=== PATIENT | male | born 1960 | race Caucasian/White ===

== ENCOUNTER 2016-11-17 17:31 | Outpatient (CLI) | payer BC ==
[2016-11-17 18:15] LABS: BASOPHILS % (AUTO) 0.3 %; EOSINOPHILS # (AUTO) 0.1 10^3/uL (0.0-0.7); EOSINOPHILS % (AUTO) 0.6 %; HCT - HEMATOCRIT 46.4 % (42.0-52.0); HGB - HEMOGLOBIN 15.9 g/dL (14.0-18.0); LYMPHOCYTES # (AUTO) 1.5 10^3/uL (1.5-3.5); LYMPHOCYTES % (AUTO) 15.3 %; MEAN CORPUSCULAR HEMOGLOBIN 31.2 pg (27.0-31.0); MEAN CORPUSCULAR HGB CONC 34.3 g/dL (32.0-36.0); MEAN CORPUSCULAR VOLUME 90.9 fL (80.0-94.0); MEAN PLATELET VOLUME 8.2 fL (7.4-11.4); MONOCYTES # (AUTO) 0.7 10^3/uL (0.0-1.0); MONOCYTES % (AUTO) 7.6 %; NEUTROPHILS # (AUTO) 7.2 10^3/uL (1.5-6.6); NEUTROPHILS % (AUTO) 76.2 %; RED CELL DISTRIBUTION WIDTH 12.9 % (12.0-15.0); UNCORRECTED WHITE BLOOD COUNT 9.5 x10^3/uL; WHITE BLOOD COUNT 9.5 x10^3/uL (4.8-10.8)
[2016-11-17 18:33] LABS: ALBUMIN/GLOBULIN RATIO 1.4 (1.0-2.2); BILIRUBIN,TOTAL 0.9 mg/dL (0.2-1.0); CREATININE 0.8 mg/dL (0.6-1.2); POTASSIUM 4.2 mmol/L (3.5-5.0); TOTAL PROTEIN 7.4 g/dL (6.7-8.2)
[2016-11-17] MEDS ORDERED: IOPAMIDOL-300 100 ML VIAL IVP ONE (19:03)
--- NOTE | 2016-11-17 20:23 | CT Preliminary Report ---
Exam: CT Abdomen/Pelvis W/ IMPRESSION: Short segment abnormal distal descending colon consistent with diverticulitis. Please not e that the full differential would also include colitis, pseudomembranous colitis, ischemia, inflamma tory bowel disease as well as nonobstructing malignancy. [facility] The call report notification system was initiated by Dr. Dafne Dunbar at 20:15 hrs on 11/17/16. The above findings were discussed with Dr Luna by Dr. Dafne Dunbar at 20:22 hrs on 11/17/16. SITE ID: [id number]
--- NOTE | 2016-11-17 20:53 | CT Report ---
EXAM: CT ABDOMEN AND PELVIS EXAM DATE: 11/17/2016 06:53 p.m. CLINICAL HISTORY: Left lower quadrant pain, history of diverticulitis. COMPARISONS: None. TECHNIQUE: Routine helical CT imaging was performed through the abdomen and pelvis. IV contrast: 100 mL Isovue-300. Enteric contrast: No. Reconstructions: Coronal and sagittal. In accordance with CT protocol optimization, one or more of the following dose reduction techniques w ere utilized for this exam: automated exposure control, adjustment of mA and/or KV based on patient s ize, or use of iterative reconstructive technique. FINDINGS: Lung Bases: Unremarkable. Liver: Normal. No masses. Gallbladder/Bile Ducts: Unremarkable. Spleen: Normal. Pancreas: Normal. Adrenal Glands: Normal. Kidneys: Normal. No masses or hydronephrosis. Peritoneal Cavity/Bowel: Diverticula off the colon. Moderate amount of edema and wall thickening over the distal 4 cm of the descending colon without extraluminal air nor abscess. Large and small bowel of normal caliber. No adenopathy. No free fluid nor air. The appendix is well visualized and normal. Pelvic Organs: Normal. The bladder and visualized pelvic organs are within normal limits. Vasculature: No aneurysms or other significant abnormality. Bones: No significant abnormality. Other: None. IMPRESSION: Short segment abnormal distal descending colon consistent with diverticulitis. Please note that the f ull differential would also include colitis, pseudomembranous colitis, ischemia, inflammatory bowel d isease as well as nonobstructing malignancy. [facility] The call report notification system was initiated by Dr. Dafne Dunbar at 20:15 hrs on 11/17/16. The above findings were discussed with Dr Luna by Dr. Dafne Dunbar at 20:22 hrs on 11/17/16. Referring Provider Line: [phone] SITE ID: [id number]
== END 2016-11-17 17:32 | disposition home or self-care (01) ==
LOC: DI 17:31
PROVIDERS: ATTEND Physician Assistant
DX: R93.5 Abnormal findings on diagnostic imaging of other abdominal regions, including retroperitoneum (principal); R10.32 Left lower quadrant pain
CPT/HCPCS: 36415; 74177; 80053; 85025; Q9967

== ENCOUNTER 2016-11-25 18:46 | Emergency (ER) | payer BC ==
[2016-11-25] MEDS ORDERED: cefTRIAXone 1 GM VIAL IM STA (20:20)
--- NOTE | 2016-11-25 20:23 | ED Physician Documentation ---
PD HPI UPPER EXT INJURY - Stated complaint Stated Complaint: RED STREAK RT ARM - Chief complaint Chief Complaint: Ext Problem - History obtained from History obtained from: Patient - History of Present Illness Location: Right Type of injury: Other (He had a CAT scan about a week ago for diverticulitis, and IV was in the right arm. He was not really having any trouble with it and the diverticulitis is improving, however he had a little pimple or scab in the antecubital fossa which he picked off today and now has a red streak up the right bicep without fevers or chills.) Review of Systems Constitutional: denies: Fever, Chills Nose: denies: Rhinorrhea / runny nose, Congestion GI: denies: Abdominal Pain, Nausea, Vomiting : denies: Dysuria PD PAST MEDICAL HISTORY - Past Medical History Past Medical History: Yes GI: GERD Other Past Medical History: diverticulitis, basal cell carcinma - Past Surgical History Past Surgical History: Yes General: Hiatal hernia repair, Other - Present Medications Home Medications: Ambulatory Orders Medication Instructions Recorded Confirmed Amox/Clav 875/125 [Augmentin 875 mg PO DAILY 11/25/16 11/25/16 875/125] Cephalexin [Keflex] 500 mg PO QID #28 capsule 11/25/16 Metronidazole [Flagyl] 500 mg PO DAILY 11/25/16 11/25/16 - Allergies Allergies/Adverse Reactions: Allergies Allergy/AdvReac Type Severity Reaction Status Date / Time levofloxacin [From Levaquin] Allergy Unknown Verified 11/25/16 18:55 - Social History Does the pt smoke?: No Smoking Status: Never smoker Does the pt drink ETOH?: Yes Does the pt have substance abuse?: No - Immunizations Immunizations are current?: Yes PD ED PE NORMAL - Vitals Vital signs reviewed: Yes - General General: Alert and oriented X 3, No acute distress - Abdomen Abdomen: Soft, Non tender - Derm Derm: Other (He has a red streak over the brachial vein over the right bicep. No limited ROM, no purulence) - Neuro Neuro: Alert and oriented X 3, Normal speech - Psych Psych: Normal mood, Normal affect Results - Vitals Vitals: Vital Signs - 24 hr 11/25/16 11/25/16 18:53 19:57 Temperature 36.2 C L Heart Rate 77 56 L Respiratory 20 16 Rate Blood Pressure 130/75 117/79 O2 Saturation 97 99 Oxygen O2 Source Room air PD MEDICAL DECISION MAKING - ED course ED course: 56-year-old gentleman presents with what looks like lymphangitis of the right upper extremity, less likely would be phlebitis, he did receive IV contrast in that arm, but a week between the injection and the symptoms seems out of place for phlebitis. Antibiotic choice and treatment is somewhat limited by the fact that he is already on Augmentin and Flagyl for his diverticulitis, he received IM Rocephin here and we will change his Augmentin to Keflex. Departure - Departure Disposition: 01 Home, Self Care Clinical Impression: Acute lymphangitis Condition: Good Record reviewed to determine appropriate education?: Yes Instructions: ED Lymphangitis Prescriptions: Cephalexin [Keflex] 500 mg PO QID #28 capsule Comments: Return if worse, if not improving in a few days, or if he develop a fever or chills.
[2016-11-25] MEDS ORDERED: LIDOCAINE 1% 2 ML VIAL ONE (20:37)
[2016-11-25] MEDS ORDERED: cefTRIAXone 1 GM VIAL ONE (20:37)
[2016-11-25 21:01] VITALS: BP 132/81
== END 2016-11-25 21:01 | disposition home or self-care (01) ==
LOC: ED 18:46
DX: L03.123 Acute lymphangitis of right upper limb (principal); Z85.89 Personal history of malignant neoplasm of other organs and systems
CPT/HCPCS: 96372; 99283

== ENCOUNTER 2017-09-01 13:32 | Outpatient (CLI) | payer BC ==
--- NOTE | 2017-09-01 17:26 | XRAY Report ---
Procedure Date: 09/01/2017 Accession Number: [id number] / [id number] Procedure: XRS - Lumbar Spine 2 View CPT Code: FULL RESULT: EXAM: Lumbar Spine 2 View DATE: 09/01/2017 1:54 PM CLINICAL HISTORY: LUMBAR SPINE PAIN WITH HIP PAIN X MONTHS COMPARISON: 11/17/2016 CT scan abdomen and pelvis TECHNIQUE: 3 views. FINDINGS: Alignment: No spondylolisthesis. Mild lumbar levoscoliosis. Bones: Lumbarization of S1 on the right.. No fractures or bone lesions. Multilevel endplate spurring Disks: Mild degenerative narrowing L3-4 L4-5 and L5-S1. Facets: Scattered degenerative facet joint arthropathy most marked L4-5 and L5-S1. Sacroiliac Joints: Degenerative change. IMPRESSION: Degenerative change lumbar spine with lumbar levoscoliosis. Findings are similar to reformatted images from the CT scan abdomen and pelvis of 11/17/2016 [facility]
== END 2017-09-01 13:33 | disposition home or self-care (01) ==
LOC: DI.S 13:32
PROVIDERS: ATTEND Nurse Practitioner Family
DX: M51.36 Other intervertebral disc degeneration, lumbar region (principal); M47.896 Other spondylosis, lumbar region; M41.86 Other forms of scoliosis, lumbar region; M47.897 Other spondylosis, lumbosacral region; M51.37 Other intervertebral disc degeneration, lumbosacral region; M47.898 Other spondylosis, sacral and sacrococcygeal region
CPT/HCPCS: 72100

== ENCOUNTER 2017-09-15 15:35 | Outpatient (CLI) | payer BC ==
--- NOTE | 2017-09-16 08:44 | XRAY Report ---
Procedure Date: 09/15/2017 Accession Number: [id number] / [id number] Procedure: XRS - Chest 2 View X-Ray CPT Code: 37152 FULL RESULT: EXAM: Chest 2 View X-Ray DATE: 09/15/2017 4:02 PM CLINICAL HISTORY: DYSPNEA, UNSPECIFIED,UNSPECIFIED KYPHOSIS, SITE UN COMPARISON: None. TECHNIQUE: 2 views. FINDINGS: Lungs/Pleura: No focal opacities evident. No pneumothorax or pleural effusion. Normal volumes. Mediastinum: Heart and mediastinal contours are unremarkable. Other: None. IMPRESSION: Normal 2-view chest radiography. [facility]
--- NOTE | 2017-09-16 08:46 | XRAY Report ---
Procedure Date: 09/15/2017 Accession Number: [id number] / [id number] Procedure: XRS - Cervical Spine Complete CPT Code: FULL RESULT: EXAM: Cervical Spine Complete DATE: 09/15/2017 4:00 PM CLINICAL HISTORY: DYSPNEA, UNSPECIFIED,UNSPECIFIED KYPHOSIS, SITE UN COMPARISON: None. TECHNIQUE: 4 views. FINDINGS: Alignment: Normal. No spondylolisthesis or scoliosis. Bones: The cervical vertebral bodies and posterior elements are well visualized from the skull base through C7-T1. No fractures or bone lesions. Disks: Moderate to severe degenerative disc disease. Likely at least partial osseous fusion of C6-7 and C7-T1. Facets: Mild degenerative facet arthropathy. There is osseous neuroforaminal narrowing, worst on the right at C3-4 and on the left at C6-7. Soft Tissues: Normal. No prevertebral soft tissue swelling. The visualized lung apices are clear. IMPRESSION: Degenerative changes, with bilateral osseous neuroforaminal narrowing. [facility]
--- NOTE | 2017-09-16 08:47 | XRAY Report ---
Procedure Date: 09/15/2017 Accession Number: [id number] / [id number] Procedure: XRS - Thoracic Spine 2 View CPT Code: FULL RESULT: EXAM: Thoracic Spine 2 View DATE: 09/15/2017 4:01 PM CLINICAL HISTORY: DYSPNEA, UNSPECIFIED,UNSPECIFIED KYPHOSIS, SITE UN COMPARISON: None. TECHNIQUE: 2 views. FINDINGS: Alignment: Minimal dextroscoliosis. Bones: No fractures or bone lesions. Disks: Moderate degenerative disc disease. Soft Tissues: Normal. The visualized lungs and cardiomediastinal silhouette are normal. IMPRESSION: Moderate degenerative disc disease, with minimal dextroscoliosis. [facility]
== END 2017-09-15 15:36 | disposition home or self-care (01) ==
LOC: DI.S 15:35
PROVIDERS: ATTEND Internal Medicine
DX: M41.84 Other forms of scoliosis, thoracic region (principal); M50.30 Other cervical disc degeneration, unspecified cervical region; M51.34 Other intervertebral disc degeneration, thoracic region; R06.00 Dyspnea, unspecified
CPT/HCPCS: 71046; 72050; 72070